=== PATIENT | female | born 1985 | race Caucasian/White ===

== ENCOUNTER 2019-11-12 11:31 | Outpatient (CLI) | payer OTHER, SELFPAY ==
--- NOTE | ~2019-11-12 | US_ITS ---
US breast LT limited 11/12/2019 12:44 Indication: Palpable lump left breast for one year. No nipple discharge. Patient is 22 weeks . Procedure: High-resolution ultrasound of the left breast Comparison: No prior studies for comparison. Findings: In the area of palpable concern at 12:00 in the subareolar location there is a fluid collec tion measuring 2.8 x 2.9 x 0.8 cm without internal vascularity or significant posterior features. No solid masses. Impression: 1: Abnormal fluid collection 12:00 position of the left breast and the subareolar location measuring 2.9 x 2.8 x 0.8 cm. This is most likely benign and may represent a focally dilated duct or a complica jose cyst. BI-RADS CATEGORY 3-PROBABLY BENIGN FINDING RECOMMENDATION: Follow-up mammogram and ultrasound in 2-3 months recommended. Reviewed, dictated and finalized at location A. Impression: 1: Abnormal fluid collection 12:00 position of the left breast and the subareol ar location measuring 2.9 x 2.8 x 0.8 cm. This is most likely benign and may re present a focally dilated duct or a complicated cyst. BI-RADS CATEGORY 3-PROBABLY BENIGN FINDING RECOMMENDATION: Follow-up mammogram and ultrasound in 2-3 months recommended.
== END 2019-11-12 11:32 | disposition home or self-care (01) ==
PROVIDERS: PCP Internal Medicine; Visit Provider Advanced Practice Midwife
DX: N63.20 Unspecified lump in the left breast, unspecified quadrant (principal); R92.8 Other abnormal and inconclusive findings on diagnostic imaging of breast
CPT/HCPCS: 76642

== ENCOUNTER 2019-11-26 10:22 | Outpatient (RCR) | payer OTHER, SELFPAY ==
[2019-11-26 11:44] LABS: Hematocrit 33.7 % (37.0-47.0); Hemoglobin 11.4 g/dL (12.0-15.0)
[2019-11-26 11:57] LABS: Glucose 1 Hour PP 50gm Dose 129 mg/dL
[2019-11-26 12:37] LABS: HIV 1/2 Ab P24 Ag Result Negative (Negative)
[2019-11-27 09:48] LABS: Rapid Plasma Reagin Non-Reactive (NonReactive)
[2019-11-28] MEDS: RHO(D) IMMUNE GLOBULIN 300 MCG SYRINGE IM (12:19)
== END 2020-02-24 23:59 | disposition home or self-care (01) ==
LOC: ANHLAB 10:22
PROVIDERS: PCP Internal Medicine; Visit Provider Obstetrics & Gynecology
DX: Z29.13 Encounter for prophylactic Rho(D) immune globulin (principal); Z11.4 Encounter for screening for human immunodeficiency virus [HIV]; O36.0130 Maternal care for anti-D [Rh] antibodies, third trimester, not applicable or unspecified; Z3A.00 Weeks of gestation of pregnancy not specified
CPT/HCPCS: 36415; 82947; 85014; 85018; 85461; 86592; 86703; 90384; G0432; J2790

== ENCOUNTER 2020-02-12 09:18 | Outpatient (CLI) | payer OTHER, SELFPAY ==
[2020-02-12 09:55] LABS: Hematocrit 34.5 % (37.0-47.0); Hemoglobin 11.7 g/dL (12.0-15.0); Mean Corpuscular HGB Conc 33.9 g/dl (32-36); Mean Corpuscular Hemoglobin 32.5 pg (26-34); Mean Corpuscular Volume 95.8 fl (80-100); Mean Platelet Volume 11.1 fl (7.4-10.4); Platelet Count Result 292 k/mm3 (150-375); Red Cell Distribution Width 13.4 % (11.5-14.5); White Blood Count 11.7 K/mm3 (4.5-10.0)
[2020-02-13 10:03] LABS: Rapid Plasma Reagin Non-Reactive (NonReactive)
== END 2020-02-12 09:19 | disposition home or self-care (01) ==
LOC: ANHLAB 09:19
PROVIDERS: PCP Internal Medicine; Visit Provider Obstetrics & Gynecology
DX: Z34.93 Encounter for supervision of normal pregnancy, unspecified, third trimester (principal); Z3A.00 Weeks of gestation of pregnancy not specified
CPT/HCPCS: 36415; 85027; 86592; 86850; 86900; 86901

== ENCOUNTER 2020-02-13 11:03 | Inpatient (IN) | payer OTHER, SELFPAY ==
--- NOTE | 2020-01-22 13:07 | PC.NURSE ---
PATIENT STATES SHE IS A SCHEDULED C/S WITH TUBAL LIGATION INFORMED PATIENT SHE NOT ON THE SCHEDULE OF TODAY--PATIENT STATES SHE HAS ANY APPOINTMENT TUESDAY WITH DR RUSHING INFORMED PATIENT WHEN SHE KNOWS DATE OF SURGERY,SHE WILL NEED TO BE IN OB 2 HOURS BEFORE SURGERY,NOTHING BY AFTER MIDNIGHT THE NIGHT BEFORE SURGERY TO HAVE PRE-OP LABS DRAWN THE DAY BEFORE SURGERY UNLESS SURGERY IS ON TUESDAY THAN IT IS THE TUESDAY BEFORE. PATIENT VERBALIZED HER UNDERSTANDING
[2020-02-13] VITALS (58 sets, daily range): BP systolic 82–111; BP diastolic 44–67; PULSE 49–85; RESP 12–18; TEMP 36.3–37.1; O2SAT 85–100; BMI 33.0
--- NOTE | 2020-02-13 07:08 | WPDHPUPDATE1 ---
History and Physical Update Update Date/Time: 02/13/20 07:08 History and Physical has been reviewed, including an updated exam of the patient. There are NO changes in the patient's condition. Risks, benefits, and alternatives have been discussed and questions answered. Patient agrees to proceed with procedure.
--- NOTE | 2020-02-13 11:03 | LDADM ---
This patient, Jia Begum, was admitted to Labor/Delivery/Recovery 120 on 02/13/20 at 11:03. Plans for labor, pain management and were discussed with patient. Patient/family oriented to hospital policies and general routines including ID bracelet, bed and alarms, visiting hours, pain management, procedures, bathroom and other care routines, personal items, smoking policy, room service/diet and guest tray routines, security routines, and visiting hours. Patient/Family are encouraged to report perceived risks to care and to ask questions if they do not understand what they are told or what they should do. See OBIX for further documentation.
[2020-02-13] MEDS: LACTATED RINGERS 1,000 ML 125 ML IV CONT ×2 (12:16→13:06)
--- NOTE | 2020-02-13 12:26 | PM.IMHP ---
H&P: HPI History of Present Illness Date/Time: 02/13/20 12:26 Chief complaint: C/S Narrative: Jia Begum is a 35 year old Multiparous female at 39 weeks gestation and history of a previous delivery. She presents for repeat delivery bilateral tubal ligation. She has undesired fertility. She has no other complaints. Membranes are intact. She denies any contractions. She reports good movement. She denies any nausea , vomiting, fever, chills. she denies any chest pain or shortness of breath. Review of Systems Constitutional: Constitutional: Reports no additional constitutional complaints, Denies fatigue, Denies headache(s), Denies lethargy and Denies weakness Eyes: Eyes: Reports no additional eye complaints, Denies blurry vision and Denies photophobia ENT: Reports as per HPI, Denies headache(s) and Denies neck pain Cardiovascular: Cardiovascular: Denies chest pain, Denies diaphoresis, Denies leg edema, Denies palpitations and Denies dyspnea Respiratory: Respiratory: Denies hemoptysis, Denies dyspnea and Denies wheezing Gastrointestinal: Gastrointestinal: Denies abdominal pain, Denies melena, Denies bloating, Denies hematochezia, Denies nausea and Denies vomiting Genitourinary: Genitourinary: Reports no additional female genitourinary complaints Musculoskeletal: Musculoskeletal: Denies joint swelling, Denies neck pain, Denies numbness and Denies stiffness Neurologic: Denies Abnormal speech present, Denies confusion, Denies headache(s), Denies numbness and Denies weakness Psychiatric: Psychiatric: Denies anxiety, Denies confusion, Denies depression, Denies homicidal ideation and Denies suicidal ideation Endocrine: Endocrine: Denies fatigue and Denies palpitations Allergic/Immunologic: Allergic/Immunologic: Denies wheezing [facility] Family History Family History (Updated 01/22/20 @ 12:54 by Maite Kwong RN) Father Diabetes mellitus Mother Diabetes mellitus Grandparent Breast cancer Colon cancer Grandparent Colon cancer Acute myocardial infarction Social History Social History Smoking status: Never smoker Second hand tobacco smoke exposure: Yes Substance use: never Spiritual care concerns: No Meds Home Medications and Allergies Home Medications Medication Instructions Recorded Confirmed Type PNV cmb#95-ferrous fumarate-FA 1 tablet PO DAILY 01/22/20 01/22/20 History [] Allergies Allergy/AdvReac Type Severity Reaction Status Date / Time No Known Allergies Allergy Verified 01/22/20 12:52 Vital Signs Vital Signs - 24 hr 02/13/20 11:46 02/13/20 11:51 02/13/20 11:56 Pulse Rate Blood Pressure Pulse Oximetry 100 100 100 02/13/20 12:01 02/13/20 12:05 02/13/20 12:06 Pulse Rate 76 Blood Pressure 111/65 Pulse Oximetry 100 99 02/13/20 12:11 02/13/20 12:16 02/13/20 12:21 Pulse Rate 81 Blood Pressure 109/67 Pulse Oximetry 99 99 99 02/13/20 12:26 Pulse Rate Blood Pressure Pulse Oximetry 100 Exam Const: General: healthy appearing, comfortable and no acute distress; No confusion Orientation/consciousness: No confusion Eyes: Direct Ophthalmoscopy: No photophobia Resp: Auscultation: clear to auscultation bilaterally, no rales, no rhonchi and no wheezes Cardio: Rate: regular rate Heart sounds: no click, no murmurs and no rubs GI: Inspection: non-distended GI Palp: No abdominal tenderness Auscultation: normal bowel sounds Neuro: General: No confusion Speech: No Abnormal speech present Extrem: General: normal to inspection, no pedal edema and no calf tenderness Assessment and Plan Assessment and plan (1) Previous section: Code(s): Z98.891 - History of uterine scar from previous surgery Status: Acute (2) Term : Code(s): Z34.90 - Encounter for supervision of normal , unspecified, unspecified trimester Status: Acute (3) Sterilization:
--- NOTE | 2020-02-13 12:28 | WPDANESEPPF ---
Anes - Initial Pre Proc Eval Procedure: Operation Date: 02/13/20 10:30 Proposed Procedures p Repeat Section With Bilateral Tubal Ligation - Marcelino Ramos MD Date/Time: 02/13/20 12:28 Surgeon: Marcelino Ramos MD Pre Op Diagnosis: C/S Patient Data Age: 35 Gender: F Height: 5 ft 2 in Weight: 82 kg Last Vital Signs Pulse 81 02/13/20 12:16 BP 109/67 02/13/20 12:16 Pulse Ox 100 02/13/20 12:26 Allergies Allergy/AdvReac Type Severity Reaction Status Date / Time No Known Allergies Allergy Verified 01/22/20 12:52 Home Medications Medication Instructions Recorded Confirmed Type PNV cmb#95-ferrous fumarate-FA 1 tablet PO DAILY 01/22/20 01/22/20 History [] Patient hx anesthesia problems: none Family hx anesthesia problems: none PMFSH Family History Family History Father Diabetes mellitus Mother Diabetes mellitus Grandparent Breast cancer Colon cancer Grandparent Colon cancer Acute myocardial infarction Social History Social History Substance use: never Spiritual care concerns: No Anes - Eval Final PreProcedure Day of Procedure 02/13/20 12:28 Patient weight: obese Heart: regular rate and rhythm Lungs: clear to auscultation Airway: Mallampati scale class II Neurological: alert and oriented Last oral intake: >/= 8 hours ASA classification: II Emergent: no Anesthetic plan: proceed Anesthesia type and monitoring: regional spinal and standard monitoring Informed Consent: The patient's anesthetic plan and its attendant risks and benefits were discussed with the patient/family/POA. Questions were solicited and answers provided to the satisfaction of the patient/family/POA.
[2020-02-13] MEDS: ceFAZolin 2 GM/D5W 50 ML 2 GM/50 ML BAG IVPB (13:35)
--- NOTE | 2020-02-13 14:30 | PM.PROC ---
Procedure Note - Detailed Date of procedure: 02/13/20 Pre-op diagnosis: C/S Unwanted fertility, previous csection Post-op diagnosis: same Procedure performed: Repeat low-transverse delivery, tubal ligation Description of procedure: The patient was taken the operating room. She was prepped and draped in the dorsal supine position with leftward tilt after induction of spinal anesthetic. When anesthesia was found to be adequate a low-transverse skin incision was made and carried down to the level the fascia with the knife. The fascial incision was made at the midline with a scalpel. The fascial incision was extended laterally with Singleton scissors. The fascia was tented upward superior and inferior with Tameka clamps. The rectus muscles were dissected off bluntly. The rectus muscles at the midline. The preperitoneal fat was dissected bluntly at the superior aspect of the separate the rectus muscles. The peritoneal cavity was entered bluntly in the same area. The peritoneal incision was extended superior and inferior with good position of bladder. Bladder blade was inserted. A low-transverse incision was made on the uterus with the scalpel. It was carried down the level of the amniotic cavity with a knife. The amniotic cavity bluntly. The uterine incision was made laterally with blunt traction. The infant was delivered. The cord was clamped and cut. The infant was handed off to waiting pediatric staff. Cord bloods were obtained. The placenta was removed manually. The uterus was exteriorized. Uterus cleared of all clots and debris. Uterus closed in 0 Vicryl in a running locked fashion. An imbricating layer of 0 Vicryl was also placed on the to bolster the closure. Fallopian tube was grasped in the ampullary region with a Bry. It was raised away from the accompanying vein. A window was created in the broad ligament in this area of the tube. 0 Vicryl was used to ligate the proximal distal ends of the skeletonize region of the tube. The segment of the tube was resected with scissors. The cut surfaces were cauterized. On the contralateral side the procedure was performed identically. The uterus was returned to the abdomen. The gutters were cleared of all clots and debris. The fascia was closed 0 Vicryl in a running fashion. Subcutaneous tissue was irrigated and bleeding areas were cauterized. The skin was closed with subcuticular absorbable teagan. The incision was covered with derma sandoval. The patient tolerated the procedure well. She was taken recovery room stable condition. Sponge, lap, needle counts were correct x2. Anesthesia: spinal Surgeon: Marcelino Ramos MD Estimated blood loss (mL): 500 Drains: No Packing: No Pathology: none sent Complications: No immediate complications Condition: stable Disposition: floor Findings: Normal maternal anatomy. Average size infant with normal Apgars.
[2020-02-13] MEDS: OXYTOCIN 30 UNITS/NS 500 ML 30 UNITS/500 ML BAG 125 UNITS IV CONT (15:04)
--- NOTE | 2020-02-13 20:06 | OBPPTRN ---
1714 Patient transferred to post room #292 via stretcher. Support person present. Oriented to unit, room, information board, rooming in, admission packet and security measures. Patient verbalizes understanding.
[2020-02-14 03:22] LABS: Basophils Absolute Auto 0.1 K/mm3 (0.0-0.1); Basophils Percent Auto 0.4 % (0.2-1.2); Eosinophils Absolute Auto 0.2 K/mm3 (0-0.3); Eosinophils Percent Auto 1.5 % (0-4.4); Hematocrit 31.5 % (37.0-47.0); Hemoglobin 10.7 g/dL (12.0-15.0); Immature Granulocyte Absolute 0.04 K/mm3 (0.00-0.031); Immature Granulocyte Percent A 0.3 % (0-0.5); Lymphocytes Absolute Auto 2.67 K/mm3 (0.9-3.2); Lymphocytes Percent Auto 22.3 % (18.3-44.2); Mean Corpuscular Hemoglobin 32.6 pg (26-34); Mean Platelet Volume 11.3 fl (7.4-10.4); Monocytes Absolute Auto 1.2 K/mm3 (0.1-0.6); Monocytes Percent Auto 10.2 % (2.6-8.5); Neutrophils Absolute Auto 7.8 K/mm3 (1.3-6.7); Neutrophils Percent Auto 65.3 % (45.5-73.1); Platelet Count Result 275 k/mm3 (150-375); Red Blood Count 3.28 M/mm3 (4.2-5.4); Red Cell Distribution Width 13.3 % (11.5-14.5)
[2020-02-14] MEDS: SIMETHICONE 80 MG TAB.CHEW PO ×7 (03:23→23:15)
[2020-02-14] MEDS: IBUPROFEN 600 MG TABLET PO ×4 (03:23→23:15)
[2020-02-14 03:30] VITALS: BP 86/51; PULSE 61; RESP 16; TEMP 36.5; O2SAT 99
[2020-02-14] MEDS: DOCUSATE SODIUM 100 MG CAPSULE PO ×2 (07:08→16:12)
[2020-02-14] MEDS: MULTIVIT/MIN/PREN/FOL AC/IRON TABLET 1 TAB PO (07:10)
--- NOTE | 2020-02-14 07:49 | PM.OBPNVD ---
OB - PN: Subj Subjective Date/time seen: 02/14/20 07:49 Patient comments: no complaints, pain well controlled, tolerating diet and flatus present OB - PN: Obj Data Labs CBC & Chem 7: 02/14/20 03:06 Labs: Laboratory Results - last 24 hr 02/14/20 03:06 WBC 12.0 H RBC 3.28 L Hgb 10.7 L Hct 31.5 L MCV 96.0 MCH 32.6 MCHC 34.0 RDW 13.3 Plt Count 275 MPV 11.3 H Immature Gran % (Auto) 0.3 Neut % (Auto) 65.3 Lymph % (Auto) 22.3 Edwards % (Auto) 10.2 H Eos % (Auto) 1.5 Baso % (Auto) 0.4 Lymph # (Auto) 2.67 Edwards # (Auto) 1.2 H Eos # (Auto) 0.2 Baso # (Auto) 0.1 Abs Immat Gran (auto) 0.04 H Absolute Neuts (auto) 7.8 H Absolute Nucleated RBC 0.0 Nucleated RBC % 0.0 OB - PN A/P Plan day: 1 Comments: Post Op LTCS - no problems, routine recovery Time Spent With Patient Time: Total time spent is greater than 50% in coordination of care (as documented) at patient's floor/unit and/or counseling patient: Exam Const: General: cooperative, healthy appearing, comfortable and no acute distress Resp: Auscultation: no crackles, no rales, no rhonchi and no wheezes Cardio: Rhythm: regular rhythm Heart sounds: no click and no murmurs GI: Inspection: non-distended Auscultation: normal bowel sounds Extrem: General: normal to inspection, no pedal edema and no calf tenderness
[2020-02-14 08:45] VITALS: BP 88/47; PULSE 62; RESP 18; TEMP 36.6; O2SAT 98
--- NOTE | 2020-02-14 09:37 | WPDANLDPN2 ---
Anes-Prog Note L&D Date/Time: 02/14/20 09:37 Comfortable throughout: section Neuraxial method: spinal Epidural/Spinal procedure site: clean & non-tender Neuro status: Neuro function grossly intact. Cardiovascular status: normal Respiratory status: normal Airway patency: baseline Mental status: baseline Post-Op hydration status: normal Vital Signs: Last Vital Signs Temp 36.5 C 02/14/20 03:30 Pulse 61 02/14/20 03:30 Resp 16 02/14/20 03:30 BP 86/51 L 02/14/20 03:30 Pulse Ox 99 02/14/20 03:30 Pain score (VAS): 0/10 I/O: Intake & Output 02/13/20 02/14/20 02/14/20 23:59 07:59 15:59 Intake Total 150 Output Total 700 1000 350 Balance -550 -1000 -350 Post-procedural complaints: none Patient feedback: Patient satisfied with anesthetic care.
--- NOTE | 2020-02-14 09:37 | WPDANLDNPN2 ---
Anes-Prog Note L&D-Neuraxial Date/Time: 02/14/20 09:37 Neuraxial medications: intrathecal PF morphine Opiod-related complaints: none Patient feedback: Patient satisfied with post-operative pain management.
[2020-02-14] MEDS: TETANUS,DIPHTHERIA,AC PERTUSSIS ADULT (0.5 ML) BOOSTRIX IM (10:02)
[2020-02-14 12:50] VITALS: BP 92/61; PULSE 58; RESP 18; TEMP 37.2; O2SAT 100
[2020-02-14 19:26] VITALS: BP 101/49; PULSE 63; RESP 16; TEMP 36.9
[2020-02-15] MEDS: IBUPROFEN 600 MG TABLET PO (07:14)
[2020-02-15] MEDS: SIMETHICONE 80 MG TAB.CHEW PO (07:17)
--- NOTE | 2020-02-15 07:28 | PM.OBPNVD ---
OB - PN: Subj Subjective Date/time seen: 02/15/20 07:28 Patient comments: no complaints baby status: doing well OB - PN: Obj Data Labs CBC & Chem 7: 02/14/20 03:06 OB - PN A/P Plan day: 2 Plan: discharge home Time Spent With Patient Time: Total time spent is greater than 50% in coordination of care (as documented) at patient's floor/unit and/or counseling patient: Exam Const: General: comfortable Resp: Effort & Inspection: normal respiratory effort Psych: Appearance: grossly normal Affect: normal affect Attitude: cooperative
[2020-02-15] MEDS: MULTIVIT/MIN/PREN/FOL AC/IRON TABLET 1 TAB PO (08:39)
[2020-02-15] MEDS: DOCUSATE SODIUM 100 MG CAPSULE PO (08:39)
[2020-02-15 08:50] VITALS: BP 109/58; PULSE 62; RESP 18; TEMP 36.6; O2SAT 100
--- NOTE | 2020-02-15 11:00 | PC.NURSE ---
Patient instructed to view the discharge video Mother & Baby Care, The First Two Weeks online. Patient was given the opportunity and encouraged to ask questions. Patient verbalized understanding of information shared and has been given the mother/baby guide for home reference.
[2020-02-18 10:58] VITALS: BP 120/77; PULSE 62; RESP 20; TEMP 36.6; O2SAT 99
--- NOTE | 2020-03-05 13:43 | PM.OBDSVD ---
DS: Admitting Diagnosis Admitting Diagnosis Admitting Diagnosis: C/S DS: Discharge Diagnosis Discharge Diagnosis (1) Previous section: Code(s): Z98.891 - History of uterine scar from previous surgery Status: Acute (2) delivery delivered: Code(s): O82 - Encounter for delivery without indication Status: Acute OB - DS: Summary OB Procedures : None OB Procedures Intrapartum: OB Procedures: : None Peripartum Data Infant Delivery Method: Section Procedures: Procedures Operation Date: 02/13/20 10:30 Actual Procedures Side Surgeon p Repeat Section With Bilateral Tubal Ligation Bilateral Marcelino Ramos MD Status at Discharge Functional status at discharge: independent ambulation Time Spent with Patient Time attestation: Total time spent providing and/or coordinating discharge services: DS: Data Data Completed and Pending Completed studies during hospitalization: Pending at discharge 02/13/20 14:08 Surgical [PTH] Routine Discharge Plan Discharge Attending physician on discharge: Marcelino Ramos Consulting providers: Elton Irwin ; Julisa Crump Discharging Clinician: Julisa Crump Patient Disposition: Home, Self-Care Activity: pelvic rest Diet: regular Discharge Instructions: Education: Mom and Baby Guide and Preeclampsia Handout Given to: Mother Follow-Up: Call your delivering provider's office for an appointment to be seen in: 1 Week Mom and baby should come to the [facility] for the follow-up appointment. Appointment Date/Time: February 18, 2020 at 11:00 am What to expect at your follow-up visit: Physical Assessment Call [phone] if you are unable to keep your appointment time. BREAST CARE: * Wear a snug supportive bra. * For engorgement discomfort: Bottle Feeding: * May apply ice packs ABDOMINAL INCISION: (if applicable) * Allow incision to air dry * Do NOT use lotions for powders on your incision * When showering, allow soap and water to run over the incision, but do not wash incision EPISIOTOMY/PERINEAL CARE: * Until bleeding stops, use your ying bottle after urinating * Change your pad frequently throughout the day * No tub baths until seen by your physician - You may shower ACTIVITY: * Rest as much as possible. * Do not exercise or lift anything heavier than your baby (such as laundry or other children.) * Avoid stairs or driving as much as possible. * Do not put anything into the vagina. No douching, tampons, or sexual activity until seen by physician. NOTIFY PHYSICIAN IF YOU HAVE ANY QUESTIONS OR IF ANY OF THE FOLLOWING SYMPTOMS OCCUR: * If your incision becomes red, swollen, or more painful than what you have experienced in the hospital. * If your vaginal bleeding becomes foul smelling. * If your vaginal bleeding becomes more heavy than a period or if your bleeding changes from pink to bright red. However, you may pass an occasional walnut-sized clot once or twice for the first week . * If you experience a sharp, shooting pain in you calves. * If you discover a hard, reddened area on your breast or if you experience flu-like symptoms. DIET: * Eat regular, well-balanced meals. * Drink plenty of fluids daily. Stand Alone Forms: General Discharge Information Follow-up/Referrals: Marcelino Ramos MD [Physician] - 1 Week Discharge Medications: New hydrocodone-acetaminophen 5-325 mg Tablet 1 tab PO Q3H PRN (Reason: Moderate Pain (4-6)) Qty: 20 RF: 0 Continued PNV cmb#95-ferrous fumarate-FA [] 28 mg iron- 800 mcg Tablet 1 tablet PO DAILY RF: 0 Date of admission: 02/13/20 11:03 Primary Care Provider: Louis Mak Admitting Provider: Marcelino Ramos Discharge Date/Time: 02/15/20 11:45 Attending physician on admission: Marcelino Ramos
== END 2020-02-15 11:45 | disposition home or self-care (01) | DRG 785 ==
LOC: ANHLDR 11:08 → ANHOB2 17:21
PROVIDERS: Admitting Provider Obstetrics & Gynecology; PCP Internal Medicine; Visit Provider Obstetrics & Gynecology
PROC: 10D00Z1 Extraction of Products of Conception, Low, Open Approach (ICD-10-PCS; CPT 59514; principal; 2020-02-13 10:30)
DX: O34.211 Maternal care for low transverse scar from previous cesarean delivery (principal); Z37.0 Single live birth; Z3A.39 39 weeks gestation of pregnancy; O99.824 Streptococcus B carrier state complicating childbirth; Z30.2 Encounter for sterilization; O99.214 Obesity complicating childbirth; E66.9 Obesity, unspecified
CPT/HCPCS: 36415; 85025; 88302; 90715; A9270; J0131; J0690; J1100; J2274; J2405; J2590; J7120

== ENCOUNTER 2020-04-23 11:08 | Outpatient (CLI) | payer OTHER, SELFPAY ==
[2020-04-24 14:04] LABS: SARS-CoV-2 RNA PCR Negative
== END 2020-04-23 11:09 | disposition home or self-care (01) ==
LOC: CHSLAB 11:10
PROVIDERS: PCP Internal Medicine; Visit Provider Internal Medicine
DX: Z20.828 Contact with and (suspected) exposure to other viral communicable diseases (principal)
CPT/HCPCS: 87081; 87635; 87880; C9803; U0003

== ENCOUNTER 2020-07-07 10:36 | Outpatient (CLI) | payer OTHER, SELFPAY ==
[2020-07-07 11:39] LABS: SARS-CoV-2 Ag Positive (Negative)
== END 2020-07-07 10:37 | disposition home or self-care (01) ==
PROVIDERS: PCP Internal Medicine; Visit Provider Internal Medicine
DX: U07.1 COVID-19 (principal)
CPT/HCPCS: 87426; C9803

== ENCOUNTER 2020-07-15 14:06 | Outpatient (CLI) | payer OTHER, SELFPAY ==
--- NOTE | ~2020-07-15 | MMUS_ITS ---
EXAMINATION: MM diagnostic wilian LT w tianna, US breast LT complete HISTORY: Left breast mass. Patient on antibiotics. TECHNIQUE: ML, MLO and cc 3-D tomosynthesis images of the left breast were performed and synthetic 2- D images were generated. CAD analysis was submitted and interpreted. High resolution complete left br east ultrasound was performed. COMPARISON: 11/12/2019 limited left breast ultrasound FINDINGS: MAMMOGRAPHIC FINDINGS: There is increased density in the subareolar area of the left breast measuring up to 5.6 cm transvers e, 5 cm vertical and 2.5 cm AP dimension. There is skin thickening of the left breast. Otherwise no suspicious mass, architectural distortion or malignant can't location is detected. There are scattered benign calcifications. ULTRASOUND: There is a large complicated cystic process in the subareolar area of the left breast 2 5.4 x 4.4 x 4.5 cm. There is through transmission and posterior enhancement consistent with fluid a nd/or pus. There is surrounding increased color flow signal consistent with hypervascularity. The fin dings are consistent with a large abscess. IMPRESSION: 1. Large complicated cystic collection in the subareolar area most consistent with abscess 2. No mammographic evidence of malignancy BI-RADS Category 2: Benign finding(s). Reviewed, dictated and finalized at location A. NESS SUPPORT ADMINISTRATOR IMPRESSION: 1. Large complicated cystic collection in the subareolar area most consistent w ith abscess 2. No mammographic evidence of malignancy BI-RADS Category 2: Benign finding(s).
== END 2020-07-15 14:07 | disposition home or self-care (01) ==
PROVIDERS: PCP Internal Medicine; Visit Provider Nurse Practitioner Obstetrics & Gynecology
DX: N64.4 Mastodynia (principal); R92.8 Other abnormal and inconclusive findings on diagnostic imaging of breast
CPT/HCPCS: 76641; 77061; 77065; G0279